=== PATIENT | female | born 1995 | race Caucasian/White ===

== ENCOUNTER 2016-12-19 16:27 | Observation (INO) ==
[2016-12-19 17:08] LABS: Bilirubin,Urine Negative (Negative); Blood,Urine Negative (Negative); Clarity,Urine Clear (Clear); Color,Urine Yellow (Yellow); Glucose,Urine (UA) Normal (Normal); Ketones,Urine Trace mg/dL (Negative); Leukocyte Esterase,Urine Negative (Negative); Nitrite,Urine Negative (Negative); Protein,Urine Negative (Neg-Trace); Specific Gravity,Urine >= 1.030 (1.010-1.025); Urobilinogen,Urine Normal (Normal)
[2016-12-19 17:39] LABS: Basophils % 0.1 %; Eosinophils # 0.1 K/mcL (0.0-0.6); Eosinophils % 1.4 %; Hematocrit 32.9 % (35.3-44.9); Hemoglobin 10.8 g/dL (11.5-15.4); Immature Granulocytes % 0.4 % (0-4); Lymphocytes # 2.2 K/mcL (0.6-4.6); Lymphocytes % 26.6 %; Mean Corpuscular HGB Conc 32.8 g/dL (31.6-35.5); Mean Corpuscular Hemoglobin 25.9 pg (28.0-33.3); Mean Corpuscular Volume 78.9 fL (83.0-100.0); Mean Platelet Volume 10.8 fL (9.4-12.4); Monocytes # 0.5 K/mcL (0.0-1.3); Monocytes % 5.7 %; Neutrophils # 5.5 K/mcL (1.6-8.9); Platelet Count 221 K/mcL (140-400); Red Blood Count 4.17 M/mcL (3.82-4.97); Red Cell Distribution Width 14.7 % (11.5-14.5); Segmented Neutrophils % 65.8 %
[2016-12-19 17:51] LABS: Alanine Aminotransferase 7 Units/L (0-55); Aspartate Amino Transferase 8 Units/L (5-34); BUN/Creatinine Ratio 11 (6-26); Blood Urea Nitrogen 6 mg/dL (7-20); Lactate Dehydrogenase 175 Units/L (159-327); Uric Acid 3.2 mg/dL (2.6-6.0); eGFR For African Americans > 60 (> 60); eGFR For Non-African Americans > 60 (> 60)
--- NOTE | 2016-12-19 19:42 | OB/GYN Progress Note ---
Date of Encounter: 12/19/16 Time of Encounter: 18:30 - Assessment and Plan (1) 23 weeks gestation of Status: Acute (2) False labor before 37 completed weeks of gestation during in second trimester, antepartum Status: Acute Patient was seen and examined by RN and sent home after ROM was ruled out. To followup with her OB @ [facility] this week. Subjective - Subjective Principal diagnosis: patient presented for r/o rupture 23 weeks Objective - Vital Signs Vital Signs: Intake and Output 12/19/16 12/19/16 12/19/16 07:59 15:59 23:59 Other: Weight 152.7 kg Patient Weight 12/19/16 23:59 Weight 152.7 kg - Labs Labs: Abnormal lab results Hgb 10.8 g/dL (11.5-15.4) L 12/19/16 17:05 Hct 32.9 % (35.3-44.9) L 12/19/16 17:05 MCV 78.9 fL (83.0-100.0) L 12/19/16 17:05 MCH 25.9 pg (28.0-33.3) L 12/19/16 17:05 RDW 14.7 % (11.5-14.5) H 12/19/16 17:05 BUN 6 mg/dL (7-20) L 12/19/16 17:05 Creatinine 0.56 mg/dL (0.57-1.11) L 12/19/16 17:05 Ur Specific [place] >= 1.030 (1.010-1.025) H 12/19/16 17:00 Urine Ketones Trace mg/dL (Negative) H 12/19/16 17:00
== END 2016-12-19 18:55 | disposition home or self-care (01) ==
LOC: 1NENULAB
PROVIDERS: ADMIT Obstetrics & Gynecology; ATTEND Obstetrics & Gynecology

== ENCOUNTER → 2017-03-13 16:04 | Observation (INO) ==
[2017-03-13 15:09] LABS: Bilirubin,Urine Small (Negative); Blood,Urine Negative (Negative); Color,Urine Yellow (Yellow); Glucose,Urine (UA) Normal (Normal); Ketones,Urine Trace mg/dL (Negative); Leukocyte Esterase,Urine Negative (Negative); Nitrite,Urine Negative (Negative); PH,Urine 5.5 pH Units (5.0-8.0); Protein,Urine 30 mg/dL (Neg-Trace); Specific Gravity,Urine >= 1.030 (1.010-1.025); Urobilinogen,Urine Normal (Normal)
[2017-03-13 15:10] LABS: Clarity,Urine Slightly Hazy (Clear)
[2017-03-13 15:17] LABS: Bacteria,Urine Moderate per hpf (None-Few); Calcium Oxalate Crystals,Urine Present; Squamous Epithelial Cell,Urine Few per lpf (None-Few)
--- NOTE | 2017-03-13 16:06 | OB/GYN Progress Note ---
Date of Encounter: 03/13/17 Time of Encounter: 16:00 - Assessment and Plan (1) and not yet delivered in third trimester Current Visit: Yes Status: Acute (2) 36 weeks gestation of Current Visit: Yes Status: Acute (3) Decreased movement affecting management of in third trimester Current Visit: Yes Status: Acute NST was reactive she will be discharged home and instructed to follow-up with her physicians this week Subjective - Subjective Interval history: Patient is a 21-year-old 2 para 1 at 36-1/2 weeks who presented to labor and delivery with complaint of no movement for the past 48 hours. Patient has care in [place]. Patient states she is high-risk because the baby has Down's. She states she did call the hospital she is supposed to deliver in the told her to come to our facility for evaluation. Patient states been having some low back pain and cramping no leaking of fluid has been having a bit of vaginal pressure. When questioned why she had not called prior to today she did not think anything of it. Patient states she is scheduled on April 04 for induction of labor. Upon arrival to labor and delivery heart tones were in the 140s reactive occasional contractions seen nothing time ago. Patient's urinalysis was unremarkable. Patient was beginning to feel the baby move marking the strip. Objective - Vital Signs Vital Signs: Intake and Output 03/13/17 03/13/17 03/13/17 07:59 15:59 23:59 Other: Weight 147.4 kg Patient Weight 03/13/17 23:59 Weight 147.4 kg - Exam FHR: category 1 FHR comments: FHT's 140's reactive occ contractions seen Cervical dilation: 1 Cervix effacement: 50 station: -3 - Labs Labs: Abnormal lab results Ur Specific [place] >= 1.030 (1.010-1.025) H 03/13/17 14:29 Urine Protein 30 mg/dL (Neg-Trace) H 03/13/17 14:29 Urine Ketones Trace mg/dL (Negative) H 03/13/17 14:29 Urine Bilirubin Small (Negative) H 03/13/17 14:29 Urine Microscopic WBC 3-5 per hpf (0-3) H 03/13/17 14:29 Urine Bacteria Moderate per hpf (None-Few) H 03/13/17 14:29
== END | disposition home or self-care (01) ==
LOC: 1NENULAB
PROVIDERS: ADMIT Obstetrics & Gynecology; ATTEND Obstetrics & Gynecology